=== PATIENT | male | born 1970 | race Caucasian/White ===

== ENCOUNTER 2017-11-17 03:18 | Emergency (ER) | payer BC | END 2017-11-17 04:04 | disposition home or self-care (01) | LOC: FTE 03:18 | DX: K08.89 Other specified disorders of teeth and supporting structures (principal); F17.210 Nicotine dependence, cigarettes, uncomplicated | CPT/HCPCS: 99284 ==

== ENCOUNTER 2018-04-23 12:14 | Emergency (ER) | payer BC | END 2018-04-23 13:42 | disposition home or self-care (01) | LOC: FTE 12:14 | DX: R05 Cough (principal); F17.210 Nicotine dependence, cigarettes, uncomplicated | CPT/HCPCS: 99283 ==